=== PATIENT | male | born 1995 | race Caucasian/White ===

== ENCOUNTER 2021-08-29 01:20 | Emergency (ER) | payer MEDICAID ==
[~2021-08-29] VITALS: Ht 182.9 cm; Wt 63.5 kg
--- NOTE | 2021-08-29 01:25 | NUR ---
Patient to ER bed 7 to gown for evaluation. Side rails up.
[2021-08-29 01:35] VITALS: BP_SYST 148
--- NOTE | 2021-08-29 01:35 | NUR ---
ER at bedside examining patient.
[2021-08-29] MEDS ORDERED: AMOX-423 PO (01:41)
[2021-08-29] MEDS ORDERED: AMOXICILLIN/CLAVULANATE POTASSIUM 875 MG TABLET PO ONE (01:45)
[2021-08-29] MEDS ORDERED: DIPH-TET-PERTUS Vaccine 0.5 ML VIAL (ADACEL) I.M. ONE (01:45)
[2021-08-29 01:54] VITALS: BP_SYST 143
--- NOTE | 2021-08-29 01:54 | NUR ---
Patient given written and verbal discharge instructions and verbalizes understanding. ER MD discussed with patient the results and treatment provided. Patient in stable condition. ID arm band removed. Rx of AUGMENTIN given. Patient educated on pain management and to follow up with PMD. Pain Scale 0/10. Opportunity for questions provided and answered. Medication side effect fact sheet provided.
[2021-08-29] MEDS ORDERED: ALBU8.5H8 INH (05:39)
[2021-08-29] MEDS ORDERED: VIS25 PO (05:39)
== END 2021-08-29 01:54 | disposition home or self-care (01) ==
LOC: SED 01:20
DX: N48.89 Other specified disorders of penis (principal); Z79.899 Other long term (current) drug therapy
CPT/HCPCS: 90715; 99283

== ENCOUNTER 2021-08-29 05:26 | Emergency (ER) | payer MEDICAID, SELFPAY ==
[~2021-08-29] VITALS: Ht 182.9 cm; Wt 77.1 kg
[~2021-08-29 05:26] MED LIST: AMOX-423 PO
--- NOTE | 2021-08-29 05:33 | NUR ---
Patient BIB by family/friend. C/O cough x today. Patient reported, had cough after smoking ~ 04.30 AM, A/O,X4, no SOB, vss.
[2021-08-29 05:35] VITALS: BP_SYST 145
--- NOTE | 2021-08-29 05:35 | NUR ---
ER Dr. Davis at bedside examining patient.
[2021-08-29] MEDS ORDERED: ALBU8.5H8 INH (05:39)
[2021-08-29] MEDS ORDERED: VIS25 PO (05:39)
[2021-08-29 05:42] VITALS: BP_SYST 145
--- NOTE | 2021-08-29 05:42 | NUR ---
Patient given written and verbal discharge instructions and verbalizes understanding. ER MD discussed with patient the results and treatment provided. Patient in stable condition. ID arm band removed. Rx of Albuterol given. Patient educated on pain management and to follow up with PMD. Pain Scale 0/10. Opportunity for questions provided and answered. Medication side effect fact sheet provided.
== END 2021-08-29 05:42 | disposition home or self-care (01) ==
LOC: SED 05:26
DX: R06.02 Shortness of breath (principal); Z79.899 Other long term (current) drug therapy
CPT/HCPCS: 99283